=== PATIENT | female | born 1965 | race Caucasian/White ===

== ENCOUNTER 2017-12-10 09:49 | Day surgery (SDC) | payer SELFPAY, OTHER ==
[2017-12-10] VITALS (10 sets, daily range): BP systolic 138–149; BP diastolic 85–99; PULSE 66–82; RESP 16–18; TEMP 36.1–36.8; O2SAT 92–98; BMI 26.9
--- NOTE | 2017-12-10 | IMM_PTH ---
PATIENT: GIO WILCOX LOC: [facility] [place] U#:[id number] AGE/SX: 52/F ROOM: RE12/10/[address]: Dr. Julian Hall MD : 1965 BED: DIS: 12/11/2017 SPEC #: [id number] RECD: 12/13/17 08:51 STATUS: ZAHRA REQ #: [id number] EDITH: 12/10/17 00:[address]: Julian Hall DEPT: IMMUNOHISTOCHEMISTRY RECD BY: Iza Downing ENTERED: 12/13/17 08:54 SP TYPE: IMMUNO OTHR DR: Dr. iMke Miramontes MD Tissues: Thyroid gland, NOS Procedures: Synapto (add) CK19 (initial) CD56 (add) CHROMO (add) GAL-3 (add) HBME (add) TTF1 (add) NSE (add) PHYSICIAN & INSTITUTION [place] [id number] SPECIMEN INFORMATION: Tissue Source: A. Left lobe of thyroid Clinical Info: Uninodular goiter Specimen Number: [id number] CPT code: 75085, 36348 x9 METHODOLOGY: Deparaffinized sections of prefer/formalin-fixed tissue or PAP/DQ stained slides are incubated with monoclonal/polyclonal antibodies/oligonucleotide probes. Localization is made via biotin free immunoperoxidase method. Appropriate controls are performed and reacted as expected. Results on target cell population are indicated in the following table: RESULTS: ANTIBODY / CLONE RESULT Block A2 CK19 (A53-B/A2.26) Focally positive TTF-1 (8G7G3/1) Positive HBME1 (HBME-1) Positive CD56 (123C3.D5) Focally positive GAL3 (9C4) Negative Block A7 TTF-1 (8G7G3/1) Positive CD56 (123C3.D5) Positive Chromo (LK2H10) Negative Synapto (polyclonal) Negative NSE Neuron Specific Enolase positive These tests were developed and their performance characteristics determined by [facility]. They may not have been cleared or approved by the U.S. Food and Drug Administration. The FDA has determined that such clearance or approval is not necessary. 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 Comment: The tumor is pushing into but does not go through the capsule. There is no evidence of vascular invasion. This case is seen in consultation with Dr. Bryant of [employer] where it was also peer reviewed. The complete consultative report is viewable in patient?s EMR. Case has been reviewed in consultation with Dr. Mratin who concurs with the above diagnosis. IDC:SJ
--- NOTE | 2017-12-10 10:03 | EKG12_ITS ---
Test Reason : PRE OP Blood Pressure : / mmHG Vent. Rate : 070 BPM Atrial Rate : 070 BPM P-R Int : 162 ms QRS Dur : 076 ms QT Int : 396 ms P-R-T Axes : 049 044 055 degrees QTc Int : 427 ms Normal sinus rhythm Normal ECG No previous ECGs available Confirmed by SORAYA DAUGHERTY, MYA ([id number]), editor city DWAYNE WILCOX ([id number]) on 12/12/2017 4:03:19 PM Referred By: Julian Hall Confirmed By:MYA LIRA MD
[2017-12-10] MEDS: Cefazolin 2 GM in 0.9% Normal Saline 100 ML IV (11:45)
--- NOTE | 2017-12-10 12:00 | THYROID_PTH ---
PATIENT: GIO WILCOX LOC: [facility] [place] U#:[id number] AGE/SX: 52/F ROOM: RE12/10/[address]: Dr. Julian Hall MD : 1965 BED: DIS: 12/11/2017 SPEC #: [id number] RECD: 12/10/17 15:24 STATUS: ZAHRA CYNDEE #: [id number] EDITH: 12/10/17 12:[address]: Julian Hall DEPT: SURGICAL PATHOLOGY RECD BY: Iza Downing ENTERED: 12/11/17 09:08 SP TYPE: THYROID OTHR DR: Dr. Mike Miramontes MD Tissues: A - Thyroid gland, NOS B - Lymph node of neck, NOS Procedures: Surgery Specimen Level IV Surgery Specimen Level V HEADER OPERATION: Completion thyroid lobectomy, left PRE-OP DIAGNOSIS: Uninodular goiter TISSUE SUBMITTED: A. Left lobe of thyroid, B. Central compartment lymph node MICROSCOPIC DIAGNOSIS A. 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 See Comment. B. Central compartment lymph node, biopsy: One out of one lymph node with no pathologic change. Benign thyroidal tissue. AM:chelsey 12/12/17 COMMENT A. The tumor is pushing into but does not go through the capsule. There is no evidence of vascular invasion. This case is seen in consultation with Dr. Bryant of [place] where it was also peer reviewed. The complete consultative report is viewable in patient?s EMR. Immunohistochemistry ([id number]) supports the diagnosis. Case was discussed with bonderizer, Dr. Olive Davis, on 01/06/18 at 12:20 p.m. Case has been reviewed in consultation with Dr. Martin who concurs with the above diagnosis. IDC:SJ MICROSCOPIC DESCRIPTION Slides are reviewed. GROSS DESCRIPTION A - Received in fixative is one container labeled with the patient's name and designated left lobe of thyroid. The specimen consists of a lobe of thyroid measuring 6 x 5 x 3.5 cm and weighing 35.8 gm. An isthmus is not clearly identified. A portion of the thyroid gland is from a domingo-white nodule measuring 5 x 3 x 3 cm. The specimen has not been oriented. Serial sections of the nodule reveal fleshy, pink cut surfaces in which there are focal foci of hemorrhage. No distinct capsule is identified. The tissue adjacent to the nodule shows a domingo, glistening cut surface. No other nodules are identified. Compensation Consultant sections are submitted in ten cassettes as follows: 1-6 ? nodule, 7-10 ? tissue adjacent to nodule. B - Received in fixative is one container labeled with the patient's name and designated central compartment lymph node. The specimen consists of an irregular fragment of light to dark domingo soft tissue measuring 1.7 x 0.5 x 0.4 cm. The specimen is submitted in its entirety in one cassette. / AM:chelsey 12/11/17 TC:? CPT: 24802, 21568
--- NOTE | 2017-12-10 12:58 | PCM.OPRPT ---
Problem List (1) Nontoxic single thyroid nodule Status: Acute Report of Operation Date of Procedure: 12/10/17 Pre-Operative Diagnosis: e04.1 left-sided Uni nodular goiter Post-Operative Diagnosis: Same Surgery/Procedure Performed:: Completion thyroidectomy left side Type of Anesthesia:: General Anesthesiologist: Ramon Bravo Specimen's removed: Left thyroid lobe Estimated Blood Loss (mL): 50 cc Description of Procedure: Patient was brought into the operating room and placed in the supine position. Under excellent general trach intubation towel was placed underneath the shoulder blades neck was extended and sterilely prepped and draped in the usual sterile fashion. Patient had a previous cervical incision but it was way too low on the collarbones and would not have allowed me to do this operation well she did have a nice skin crease above this so I made an incision here. Subplatysmal flaps were created with use of electrocautery. Gelpi retractor was placed in the wound. Midline strap muscles were opened the gland was extremely large and I made a determination to cut the strap muscles with a harmonic dissector very early on in my dissection. This gave me access to the superior and inferior pole vessels quite nicely. I went to the inferior pole vessels and took these down with harmonic dissector and identified the parathyroid gland. I then went to the superior thyroid vessels I took these down with a harmonic dissector lot of scar tissue here a lot of little bleeding from the muscle which I controlled with a harmonic dissector I rotated the gland from lateral to medial standpoint taking down the middle thyroidal vein and then coming down and encountering the recurrent laryngeal nerve. I took the gland off of Muir's ligaments with a harmonic dissector inspected and saw no parathyroid tissue and sent it to pathology for permanent sectioning. There was a lymph node in the central compartment which I removed with the harmonic dissector and I sent that in a separate container there was a small bleeder on the trachea I was able to control this with just touch cautery it was away from the nerve. I placed FloSeal and piece of Surgicel into the wound. I brought the strap muscles together with 0 Vicryl in a running fashion. The midline strap muscles were brought together with 2-0 Vicryl. Local was injected. Platysma was brought together with 3-0 Vicryl and then a running 4-0 Monocryl on the skin. Dermabond was applied sterile dressings were applied and the patient tolerated the procedure well., - Admit VTE Documentation VTE Present on Admission: No VTE Mechan Device Prophylaxis: SCD's VTE Pharm Prophylaxis ordered?: No Reason prophylaxis not ordered:: Treatment Not Indicated
[2017-12-10] MEDS: BUPIVACAINE LIPOSOME/PF 20 ML VIAL OPERA.SITE (13:00)
[2017-12-10] MEDS: Lactated Ringers 1,000 ML 70 ML IV (15:21)
[2017-12-10 15:53] LABS: Calcium,Total 8.6 mg/dL (8.5-10.1)
[2017-12-10] MEDS: Calcium Carbonate 500 MG Tablet 1000 MG PO (16:46)
[2017-12-10] MEDS: HYDROcodone Bitartrate/Apap 5/325 Tablet PO (22:37)
[2017-12-10] MEDS: Pravastatin 40 MG Tablet PO (22:37)
[2017-12-11 00:45] VITALS: BP 116/78; PULSE 75; RESP 16; TEMP 36.8; O2SAT 96
[2017-12-11] MEDS: Lactated Ringers 1,000 ML 70 ML IV (02:41)
[2017-12-11] MEDS: Levothyroxine 100 MCG Tablet PO (06:08)
[2017-12-11 06:11] VITALS: BP 127/85; PULSE 68; RESP 16; TEMP 36.9; O2SAT 96
[2017-12-11 06:35] LABS: Calcium,Total 9.1 mg/dL (8.5-10.1)
--- NOTE | 2017-12-11 07:17 | DCINST_ITS ---
Discharge Diet: Light diet - advance as tolerated Discharge Activity: May Not Drive - No driving for 4 days or while taking narcotic pain meds. May shower in (days): 1 Lifting Restrictions: 10 pounds Call your doctor if your incision/area has: Continuous Slow Oozing, Sudden Increased Bleeding, Increased Pain/ Swelling, Increased Redness, Foul Smelling Discharge, Swelling at the incision site Suture Line Care: Avoid Pulling/Pushing, Avoid Pinching/Bending Cleanse incision/area with: Soap & Water Allergies/Adverse Reactions: Allergies clindamycin Allergy (Verified 12/03/17 10:33) rash Medications to take at Discharge pravastatin 40 mg tablet 40 mg PO QHS 11/26/17 Ferrous Sulfate [Iron] 325 mg PO PRN PRN 12/03/17 Oxycodone HCl/Acetaminophen [Percocet 5/325] 1 - 2 tab PO Q4H PRN PRN 4 Days # 30 tab 12/10/17 levothyroxine 100 mcg tablet 100 mcg PO DAILY@0600 #30 tab 12/11/17 The following prescriptions were given: Oxycodone HCl/Acetaminophen [Percocet 5/325] 1 - 2 tab PO Q4H PRN PRN 4 Days # 30 tab PRN Reason: Pain Primary Care Physician: Mike Miramontes MD [Primary Care Provider] - Please Follow Up With: Kalina López PA-C - [phone] When: 10 days Proposed Discharge Date: 12/11/17
--- NOTE | 2017-12-11 07:19 | PCM.PN.SRG ---
Patient Problems: Active and Suspected Problems (Last Reviewed 11/26/17 @ 09:23 by Julian Hall MD) Nontoxic single thyroid nodule (Acute) Subjective: Patient evaluated resting comfortably in bed. She denies incisional discomfort/pain, nausea, vomiting. She is tolerating a diet well. She notes minimal amount of sore throat and hoarseness. She denies numbness/tingling. - Physical Exam General: Alert, Oriented x3, Cooperative Neck: Supple, No JVD, Negative Carotid Bruits, - - Anterior incision- c/d/i. No erythema or infection noted. Swelling noted. Vital Signs Temp Pulse Resp BP Pulse Ox 98.5 F 68 16 127/85 H 96 12/11/17 06:11 12/11/17 06:11 12/11/17 06:11 12/11/17 06:11 12/11/17 06:11 Oxygen Delivery Method Room Air Weight: 142 lb 3.17 oz Body Mass Index (BMI) 26.9 Intake and Output for Last 24 Hours 12/09/17 12/10/17 12/11/17 23:59 23:59 23:59 Intake Total 900 / 900 647 / 647 Balance 900 / 900 647 / 647 Laboratory Tests Past 24 Hrs 12/10/17 12/10/17 12/11/17 14:55 20:47 05:44 Calcium 8.6 9.0 9.1 Medical Necessity - Tobacco Use Smoking Status: Never smoker Assessment/Plan Active and Suspected Problems (Last Reviewed 11/26/17 @ 09:23 by Julian Hall MD) Nontoxic single thyroid nodule (Acute) I am following this patient in conjunction with Dr. Hall S/p Completion left thyroidectomy Calcium level reviewed Levothyroxine prescription escripted to preferred pharmacy Ready for discharge
--- NOTE | 2017-12-11 07:24 | PN.SURG_ITS ---
Patient Problems: Active and Suspected Problems (Last Reviewed 11/26/17 @ 09:23 by Julian Hall MD) Nontoxic single thyroid nodule (Acute) Subjective: Patient evaluated resting comfortably in bed. She denies incisional discomfort/ pain, nausea, vomiting. She is tolerating a diet well. She notes minimal amount of sore throat and hoarseness. She denies numbness/tingling. - Physical Exam General: Alert, Oriented x3, Cooperative Neck: Supple, No JVD, Negative Carotid Bruits, - - Anterior incision- c/d/i. No erythema or infection noted. Swelling noted. Vital Signs Temp Pulse Resp BP Pulse Ox 98.5 F 68 16 127/85 H 96 12/11/17 06:11 12/11/17 06:11 12/11/17 06:11 12/11/17 06:11 12/11/17 06:11 Oxygen Delivery Method Room Air Weight: 142 lb 3.17 oz Body Mass Index (BMI) 26.9 Intake and Output for Last 24 Hours 12/09/17 12/10/17 12/11/17 23:59 23:59 23:59 Intake Total 900 / 900 647 / 647 Balance 900 / 900 647 / 647 Laboratory Tests Past 24 Hrs 12/10/17 12/10/17 12/11/17 14:55 20:47 05:44 Calcium 8.6 9.0 9.1 Medical Necessity - Tobacco Use Smoking Status: Never smoker Assessment/Plan Active and Suspected Problems (Last Reviewed 11/26/17 @ 09:23 by Julian Hall MD) Nontoxic single thyroid nodule (Acute) I am following this patient in conjunction with Dr. Hall S/p Completion left thyroidectomy Calcium level reviewed Levothyroxine prescription escripted to preferred pharmacy Ready for discharge
[2017-12-11] MEDS: Calcium Carbonate 500 MG Tablet 1000 MG PO (09:12)
[2017-12-11 11:30] VITALS: BP 132/80; PULSE 67; RESP 16; TEMP 36.9; O2SAT 96
== END 2017-12-11 11:30 | disposition home or self-care (01) ==
LOC: SDC 09:51 → AC 09:52 → MS2 12:13
PROVIDERS: Family Provider Family Medicine; PCP Family Medicine; Visit Provider Surgery
PROC: (CPT 60220; principal; 2017-12-10 11:45)
DX: D34 Benign neoplasm of thyroid gland (principal); I34.1 Nonrheumatic mitral (valve) prolapse; E78.00 Pure hypercholesterolemia, unspecified; D50.9 Iron deficiency anemia, unspecified; Z79.899 Other long term (current) drug therapy
CPT/HCPCS: 60220; 36415; 82310; 88305; 88307; 88341; 88342; 93005; J7120; J2405

== ENCOUNTER → 2018-01-24 09:18 | Outpatient (CLI) | payer OTHER, SELFPAY ==
[2018-01-24 10:28] LABS: Thyroid Stim Hormone (TSH) 0.02 uIU/mL (0.358-3.74)
== END ==
PROVIDERS: Family Provider Family Medicine; PCP Family Medicine; Visit Provider Physician Assistant
DX: E89.0 Postprocedural hypothyroidism (principal)
CPT/HCPCS: 36415; 84443

== ENCOUNTER → 2018-03-26 12:59 | Outpatient (CLI) | payer OTHER, SELFPAY ==
[2018-03-26 14:18] LABS: Thyroid Stim Hormone (TSH) 0.03 uIU/mL (0.358-3.74)
== END ==
PROVIDERS: Family Provider Family Medicine; PCP Family Medicine; Visit Provider Surgery
DX: E04.1 Nontoxic single thyroid nodule (principal)
CPT/HCPCS: 36415; 84443